=== PATIENT | male | born 1970 | race African-American/Black ===

== ENCOUNTER 2019-10-28 05:06 | Day surgery (SDC) | payer BC, OTHER ==
[2019-10-27 17:21] VITALS: BMI 23.9
--- OUTSIDE RECORDS SUMMARY | 2019-10-28 05:11 | XMS ---
:1970 Author Organization [facility] Support Name Relationship Address Phone [facility] [employer] [facility] [employer] Unavailable [address] [facility] [phone] [place] [address] YOLIS BANUELOS [address] [place] [address] Re-disclosure Warning The records that you are about to access may contain information from federally- assisted alcohol or drug abuse programs. If such information is present, then the following federally mandated warning applies: This information has been disclosed to you from records protected by federal confidentiality rules (42 CFR part 2). The federal rules prohibit you from making any further disclosure of this information unless further disclosure is expressly permitted by the written consent of the person to whom it pertains or as otherwise permitted by 42 CFR part 2. A general authorization for the release of medical or other information is NOT sufficient for this purpose. The Federal rules restrict any use of the information to criminally investigate or prosecute any alcohol or drug abuse patient.The records that you are about to access may contain highly sensitive health information, the redisclosure of which is protected by Article 27-F of the [facility] Public Health law. If you continue you may haveaccess to information: Regarding HIV / AIDS; Provided by facilities licensed or operated by the [facility] Office of Mental Health; or Provided by the [facility] Office for People With Developmental Disabilities. If such information is present, then the following [facility] mandated warning applies: This information has been disclosed to you from confidential records which are protected by state law. State law prohibits you from making any further disclosure of this information without the specific written consent of the person to whom it pertains, or as otherwise permitted by law. Any unauthorized further disclosure in violation of state law may result in a fine or [place] [facility] sentence or both. A general authorization for the release of medical or other information is NOT sufficient authorization for further disclosure. Insurance Providers Payer name Policy type / Policy ID Covered Covered republican's Policy Plan Coverage type republican ID relationship to Palm Information palm BC PPO [id number] SP [id number] GHI CBP [id number] SP [id number] 1 Results ID Date Data Source [id number] 10/23/2019 12:55:00 PM EDT [facility] Name Value Range Interpretation Description Data Sup porting Code Source(s) Document(s ) SARS [facility] coronavirus 2 RNA This lab was ordered by [facility] and reported by [facility]. Procedure
[2019-10-28] MEDS ORDERED: ROPIVACAINE HCL 0.5% 30ML VIAL ONE (09:07)
[2019-10-28] MEDS ORDERED: MIDAZOLAM HCL 2 MG/2 ML SINGLE DOSE VIAL ONE ×2 (09:09)
--- NOTE | 2019-10-28 09:33 | HP ---
Satellite [facility] - Chief Complaint Chief Complaint: left shoulder pain - Past Medical History Allergies/Adverse Reactions: Allergies Allergy/AdvReac Type Severity Reaction Status Date / Time No Known Allergies Allergy Verified 10/28/19 07:33 - Current Medications Current Medications: Home Medications Medication Instructions Recorded Losartan Potassium [Cozaar] 100 mg PO HS 10/27/19 Multivitamins [Multivit ([facility] 1 tab PO DAILY 10/27/19 Formulary)] Hydrocodone/Acetaminophen 1 each PO Q6H #30 tablet MDD 4 10/28/19 [Hydrocodone-Acetamin 5-325 mg] Satellite Physical Exam - Physical Examination Vital Signs: Vital Signs Period Temp Pulse Resp BP Sys/Velazco Pulse Ox Last 24 Hr 97.3 F-97.3 F 83-83 16-16 139-139/82-82 100-100 General Appearance: Well Nourished, Well Developed, Alert & Oriented x3 ENT: Clear Lung: Normal air movement Extremities: Other (left shoulder- + ttp, decr rom, + neer, +richmond, nvi) Neurological: Intact, Alert, Oriented Satellite Impression/Plan - Impression/Plan Impression: left shoulder impingement Operative Procedure: left shoulder arthroscopy with SAD possible RCR Date to be Performed: 10/28/19
[2019-10-28] MEDS ORDERED: LIDOCAINE HCL/PF 2% SDV 5ML VIAL ONE (10:25)
[2019-10-28] MEDS ORDERED: ceFAZolin 2 GRAM PREMIX BAG IVPB ONE (10:30)
[2019-10-28] MEDS ORDERED: ceFAZolin SODIUM 1 GM VIAL ONE (10:40)
[2019-10-28] MEDS ORDERED: EPHEDRINE SULFATE/0.9% NACL/PF 50 MG/10 ML SYRINGE NR ONE (10:50)
--- NOTE | 2019-10-28 11:38 | OP ---
Operative Note - Note: Operative Date: 10/28/19 ([facility]) Pre-Operative Diagnosis: left shoulder impingement Operation: left shoulder arthroscopy with KAPIL GEORGE MUA Post-Operative Diagnosis: Same as Pre-op Surgeon: Rasheed Noel Bead Preparer: Cirilo Velásquez) Anesthesiologist/FINISH MILL OPERATOR: Goldie Cochran Anesthesia: General, Local Specimens Removed: shavings Estimated Blood Loss (mls): 5
--- NOTE | 2019-10-28 12:14 | OP ---
DATE OF OPERATION: 10/28/2019 PREOPERATIVE DIAGNOSIS: Left shoulder impingement syndrome. POSTOPERATIVE DIAGNOSIS: Left shoulder impingement syndrome. PROCEDURE: Left shoulder arthroscopy and subacromial decompression. SURGEON: Rasheed Noel MD CHORAL DIRECTOR: Maggy Moore MD SECOND CHORAL DIRECTOR: JUS Lechuga DRAINS: None. COMPLICATIONS: None. FLUID REPLACEMENT: Plasmalyte 700 mL. BLOOD LOSS: Minimal. BLOOD GIVEN: None. INDICATION: This patient is a 49-year-old male with a preoperative diagnosis of left shoulder impingement syndrome and partial rotator cuff tear. After understanding the potential risks, complications, alternatives, and benefits of surgery versus nonsurgical treatment, the patient elected to undergo this procedure. DESCRIPTION OF PROCEDURE: Patient brought to the operating room, peripheral IV placed, IV sedation given. IV Ancef, 2 g, was given. Left interscalene block was performed. LMA anesthesia was induced. He was placed in the beach chair position with ample padding throughout. Left upper extremity was prepped and draped in sterile fashion, the bony landmarks marked out with a marking pen. A posterior portal was established. A diagnostic glenohumeral arthroscopy was performed. Inside the joint his anatomy overall looked good. The humerus and the glenoid had no arthritis. The labrum looked normal. The biceps tendon looked normal. Patient did have a partial undersurface tear of the supraspinatus insertion. There was no synovitis inside the joint. Next, our attention turned to the subacromial space. Patient had a lot of inflammatory bursitis. A lateral portal was established under direct visualization using the spinal needle. A green cannula was introduced in the joint. An ArthroCare wand was used to do a soft tissue debridement/subacromial soft tissue decompression. Once this was done, the top surface of the rotator cuff was directly visualized, and at this point in the procedure I did not see any continuation of the rotator cuff tear to the top surface. The patient had an extremely large subacromial spur which was very anterior, and a small distal clavicular spur. The 5.5-mm oval bur was used to take down the bone spur and do the bony aspect of the subacromial decompression of the undersurface of the acromion and the clavicle. It was fine tuned in reverse and then with the straight shaver. The decompression was complete. The top surface of the rotator cuff was again directly visualized. All the bursa had been removed. It was put through a full range of motion. It was probed with a blunt trocar, and there were no points of compromise at the top surface of the rotator cuff, and therefore I elected to not do the rotator cuff repair. Just to make sure, it was explored again, and again I did not see any reason to do the rotator cuff repair. He had such a large subacromial I feel like that he would get significant relief from that decompression. Next, the area was copiously irrigated and washed out. All instrumentation, excess saline and debris removed. The arthroscopy portals were closed with 3-0 nylon sutures. The area was then washed and dried, covered with Aquacel dressing. His arm was put into a sling. Total operative time was about 45 minutes. No complications during the case. Patient tolerated the procedure quite well. He was extubated, brought to the ambulatory recovery room in stable condition. MAGGY MOORE M.D. [id number]
[2019-10-28] MEDS ORDERED: ONDANSETRON 4 MG/2 ML VIAL IVPUSH PRN (13:23)
[2019-10-28] MEDS ORDERED: oxyCODONE HCL 5 MG TABLET PO PRN ×2 (13:23)
[2019-10-28] MEDS ORDERED: LACTATED RINGERS SOLUTION 1,000 ML IV SCH (13:30)
[2019-10-28 14:31] VITALS: BP 147/97; PULSE 66; TEMP 96.2
--- NOTE | 2019-10-28 15:05 | EKG ---
Test Reason : Blood Pressure : / mmHG Vent. Rate : 061 BPM Atrial Rate : 061 BPM P-R Int : 162 ms QRS Dur : 104 ms QT Int : 394 ms P-R-T Axes : 056 055 042 degrees QTc Int : 396 ms NORMAL SINUS RHYTHM VOLTAGE CRITERIA FOR LEFT VENTRICULAR HYPERTROPHY ABNORMAL ECG NO PREVIOUS ECGS AVAILABLE Confirmed by MD PERICO, CHIDI ([id number]) on 10/28/2019 3:04:47 PM Referred By: Confirmed By:CHIDI RIVER MD
--- NOTE | 2019-11-02 16:40 | PATH ---
Surgical Pathology Report Patient Name: KEENAN BANUELOS [facility]. Rec. #: [id number] /Age/Gender: 1970 (Age: 49) / M Account: [id number] Location: [facility] SURGICAL Taken: 10/28/2019 Received: 10/28/2019 Reported: 11/02/2019 Physicians: Philipp Magallon M.D. Specimen(s) Received LEFT SHOULDER SHAVINGS Clinical History Tear left shoulder Final Diagnosis LEFT SHOULDER SHAVINGS: FREAGMENTS OF SMOOTH MUSCLE, BONE, AND SYNOVIAL TISSUE. NEGATIVE FOR MALIGNANCY. Electronically Signed Khanh Mcclellan M.D. Gross Description Received in formalin labeled "shavings left shoulder," is a 3.5 x 3.4 x 0.4 cm aggregate of sawant-yellow soft tissue fragments. The formalin is filtered and veterans contact representative portions submitted in one cassette. __ FATOUMATA/10/29/2019 shad/10/29/2019
== END 2019-10-28 15:01 | disposition home or self-care (01) ==
LOC: JASU-SURG 05:06
PROVIDERS: ATTEND Orthopaedic Surgery
PROC: 0RNK4ZZ Release Left Shoulder Joint, Percutaneous Endoscopic Approach (ICD-10-PCS; principal; 2019-10-28 09:30)
DX: M75.42 Impingement syndrome of left shoulder (principal)
CPT/HCPCS: 88304-TC; 93005; 93010; 94760